=== PATIENT | male | born 1995 | race Caucasian/White ===

== ENCOUNTER 2025-09-08 15:39 | Outpatient (AMB) | payer OTHER, SELFPAY ==
--- NOTE | 2025-09-08 15:49 | MHC.PC.OV ---
Vital Signs 09/08/25 15:56 Height 5 ft 7 in Weight 142 lb 2 oz BMI 22.3 BP 153/100 H Blood Pressure Location Rt brachial Position Sitting Respiration 18 Pulse 110 H Pulse Source Monitor Temp 98.3 F Temp Source Oral Pulse Oximetry (%) 99 Oxygen Delivery Method Room Air Intake Visit Reasons: CEMENT BLOCK MAKER - Diabetic symptoms Intake Note: CEMENT BLOCK MAKER- Diabetic symptoms, hypoglycemia, uncontrolled highs, hands tingling, thirst, nausea Stripper And Taper Required: No Accompanied by: Self / Same As Patient Allergies No Known Allergies Allergy (Verified 09/08/25 15:52) Medication List - Last Reconciled 09/08/25 by Alden Orourke MD famotidine 20 mg PO DAILY Tobacco use date assessed: 09/08/25 Dental Screening Dental Screen Date: 09/08/25 Did you have a dental visit in the last 12 months?: Yes Did you have a dental problem in the last 6 months where you did not have access to dental care?: No Was dental information given to patient?: Patient has dentist HPI HPI Comments History of Present Illness Details History of Present Illness The patient is a 29 year old individual presenting with constant nausea and the sensation of fluctuating blood sugar levels. Nausea: The patient has experienced constant nausea since mid-June. Episodes of intense nausea are associated with cold sweats of the hands and feet, tachycardia, tingling in the hands and feet, and increased thirst. These episodes can occur suddenly, with one notable incident occurring immediately after eating. The patient has a prescription for Zofran from a prior urgent care visit and has also taken famotidine 20 mg, which provides minimal relief. Hypoglycemia: The patient has a history of hypoglycemia diagnosed around age 11 or 12. The patient is familiar with the symptoms of low blood sugar and keeps Nathan Bloks for management. There is a history of one hospitalization in college for a blood sugar level in the low 20s. The patient has never seen an cell support operator for this condition. The current symptoms of perceived blood sugar fluctuations and nausea do not feel like the patient's typical hypoglycemic episodes. Lipoma of skin and subcutaneous tissue of back: The patient was diagnosed with a lipoma underneath the shoulder blade by a cable installation manager last week. The lipoma can be painful at times. The cable installation manager recommended removal but did not provide a referral. Alcohol Consumption: The patient reports drinking alcohol socially a couple of times per week, estimating consumption at about 15 drinks per week. Elevated blood pressure reading, without diagnosis of hypertension: There is a family history of hypertension. The patient has not previously been told of having elevated blood pressure. 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 - Substance Use: The patient denies smoking or illicit drug use. - Alcohol Use: The patient reports drinking socially, consuming approximately 15 drinks per week. - Nutritional Intake: The patient reports intentionally eating better to lose weight. - Weight Management: The patient has had an intentional weight loss of 25 pounds over the last six months. - Exercise: The patient reports working out more as part of intentional weight loss efforts. Family History: - Diabetes: Runs on the maternal side of the family. - Hypertension: Present in the family. Past Medical History - Hypoglycemia: Diagnosed at age 12-13, with a history of one hospitalization in college for a blood sugar level in the low 20s. - Lipoma: Located under the shoulder blade, recently diagnosed. Health Maintenance - A comprehensive set of screening labs was ordered, including CBC, CMP, thyroid panel, hemoglobin A1c, lipid panel, vitamin B12, folate, vitamin D, urinalysis, and screening for hepatitis B, hepatitis C, and HIV. - A follow-up appointment is scheduled in two weeks to discuss all lab results and determine the next steps in management. [facility] Medical History (Updated 09/08/25 @ 16:58 by Alden Orourke MD) Elevated BP without diagnosis of hypertension Alcohol abuse Lipoma Nausea Hypoglycemia Surgical History (Updated 09/08/25 @ 15:54 by Alen Ellis CMA) H/O wisdom tooth extraction Family History (Updated 09/08/25 @ 15:56 by Alen Ellis CMA) Maternal Aunt Diabetes Maternal Grandfather Diabetes Hypertension Maternal Grandmother Diabetes Maternal Uncle Diabetes Mother Diabetes Father Hypertension Paternal Grandmother Breast cancer Social History (Updated 09/08/25 @ 15:56 by Alen Ellis CMA) Housing: Apartment Alcohol intake: current Patient Tobacco Use Status: Never used Tobacco Second Hand Smoke Exposure: No service: No Current occupational status: employed 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 1. Little interest or pleasure in doing things: not at all 2. Feeling down, depressed, or hopeless: not at all 3. Trouble falling or staying asleep, or sleeping too much: not at all 4. Feeling tired or having little energy: not at all 5. Poor appetite or overeating: several days 6. Feeling bad about yourself - or that you are a failure or have let yourself or your family down: not at all 7. Trouble concentrating on things, such as reading the newspaper or watching television: not at all 8. Moving or speaking so slowly that other people could have noticed. Or the opposite - being so fidgety or restless that you have been moving around a lot more than usual: not at all 9. Thoughts that you would be better off or of hurting yourself in some way: not at all Total score: 1 Depression Screening Interpretation: Negative Depression Screening Done: Yes 47648 - PHQ-9 Billing: Yes Source: Developed by Drs. Nicola Nugent, Philomena Welsh, Jaylen Tracey and colleagues, with an educational natasha from [employer]. Thrive Questionnaire Date Thrive assessed: 09/08/25 I am a: Patient What is your living situation today?: I have a steady place to live Within the past 12 months, did the food you bought not last and you didn't have the money to get more?: Never true Within the past 12 months, did you worry whether your food would run out before you got money to buy more?: Never true Do you have trouble paying for medicines?: No Do you have trouble getting transportation to medical appointments?: No Do you have trouble paying your heating and electricity bill?: No Do you have trouble taking care of your child, family member or friend?: No Do you have trouble with day-to-day activities such as bathing, preparing meals, shopping, managing finances, etc.?: No Are you currently unemployed and looking for a job?: No Are you interested in more education?: No Please select the resources that you would like help with: None Currently or been in a relationship where the following occur: No concerns reported THRIVE Score: 0 AUDIT C Alcohol Use Questionnaire (AUDIT-C) 1. How often do you have a drink containing alcohol?: 2-3 times a week 2. How many drinks containing alcohol do you have on a typical day when you are drinking?: 3 or 4 3. How often do you have six or more drinks on one occasion?: Less than monthly Total Score: 5 BOZENA-7 AMB Questionnaire BOZENA-7 Date BOZENA - 7 assessed: 09/08/25 Feeling nervous, anxious, or on edge: 1 = Several days Not being able to stop or control worryin = Not at all Worrying too much about different things: 0 = Not at all Trouble relaxin = Several days Being so restless that it is hard to sit still: 0 = Not at all Becoming easily annoyed or irritable: 0 = Not at all Feeling afraid as if something awful might happen: 0 = Not at all Total BOZENA-7 score (0-4 normal; 5-9 mild; 10-14 moderate; 15-21 severe): 2 Source: Developed by Drs. Nicola Nugent, Philomena Welsh, Jaylen Tarcey and colleagues, with an educational natasha from [employer]. BOZENA-7 Assessment Billing BOZENA-7 Assessment Tool: BOZENA-7 Assessment 98081 Review of Systems Narrative Review of Systems - Constitutional: Reports intentional weight loss of 25 pounds in the last 6 months. - GI: Reports constant nausea since mid-June. - Denies any issues with bowel movements. - Cardiovascular: Reports palpitations during episodes of nausea. - Neurological: Reports tingling in the hands and feet during episodes of nausea. - Endocrine: Reports a history of hypoglycemia and a current sensation of blood sugar fluctuations. - Reports excessive thirst during episodes of nausea. - Dermatologic: Reports cold sweats of the hands and feet during episodes of nausea. - Reports a lipoma under the shoulder blade. - : Denies any issues with urination. - Sleep: Denies anything out of the ordinary with sleep. 10-point ROS reviewed and negative except as noted in HPI Physical exam (Primary Care) Vital Signs: Last Vital Signs Temp 98.3 F 09/08/25 15:56 Pulse 110 H 09/08/25 15:56 Resp 18 09/08/25 15:56 BP 153/100 H 09/08/25 15:56 Pulse Ox 99 09/08/25 15:56 Oxygen Delivery Method Room Air 09/08/25 15:56 BMI result Body Mass Index 22.3 Tobacco/Smoking Status: Tobacco use Status Tobacco use date assessed 09/08/25 09/08/25 15:58 Patient Tobacco Use Status Never used Tobacco 09/08/25 15:58 PHQ-9: PHQ-9 Score PHQ-9: Total score 1 09/08/25 16:32 Depression Screening Interpretation: Negative Thrive Assessment: Date of Thrive Assessment Date Thrive assessed 09/08/25 09/08/25 15:58 Currently or been in a relationship where the following occur: No concerns reported Narrative Physical Exam General: Well-appearing, in no acute distress. Vital signs: Blood pressure noted at 153/100. HEENT: Normocephalic, atraumatic. PERRLA, EOMI. Conjunctiva clear, sclera anicteric. Oropharynx clear, mucous membranes moist. TMs intact bilaterally. Neck: Supple, no lymphadenopathy, no thyromegaly, no JVD or carotid bruits. Cardiovascular: RRR, normal S1/S2, no murmurs, rubs, or gallops. Peripheral pulses 2+ and symmetric. No edema. Respiratory: Lungs clear to auscultation bilaterally, no wheezes, rales, or rhonchi. Normal effort. Abdomen: Soft, non-tender, non-distended. Normoactive bowel sounds. No hepatosplenomegaly, no masses. Liver felt slightly enlarged. MSK: Full range of motion, no joint swelling or deformity. Normal gait. Skin: Warm, dry, intact. No rashes, lesions, or pallor. Noted lipoma under the shoulder blade. Neuro: Alert and oriented x3. Cranial nerves II-XII intact. Strength 5/5 throughout. Sensation intact. Reflexes 2+ symmetric. Normal coordination and gait. Psych: Appropriate mood and affect. Normal judgment and insight. Results AMB Hemoglobin A1c AMB Hemoglobin A1c 5.2 % Last Edit by Alen Ellis CMA on 09/08/25 16:33 Results Reviewed Results Reviewed: Laboratory Last Values Hgb A1c (Clinic) 5.2 % (4.0-6.0) 09/08/25 16:32 Coding Level of Care Code New Pt Level 4 (10509) Diagnoses Nausea R11.0 Lipoma D17.9 Alcohol abuse F10.10 Elevated BP without diagnosis of hypertension R03.0 Additional Codes BOZENA-7 Assessment Billing - BOZENA-7 Assessment Tool: BOZENA-7 Assessment 65276 ([id number]) PHQ-9 - 01704 - PHQ-9 Billing: Yes ([id number]) Assessment & Plan Assessment & Plan (1) Nausea: Code(s): R11.0 - Nausea Category: Medical (2) Lipoma: Code(s): D17.9 - Benign lipomatous neoplasm, unspecified Category: Medical (3) Alcohol abuse: Code(s): F10.10 - Alcohol abuse, uncomplicated Category: Social Hx (4) Elevated BP without diagnosis of hypertension: Code(s): R03.0 - Elevated blood-pressure reading, without diagnosis of hypertension Category: Medical Plan Consent The patient was informed of the plan to order comprehensive blood work to evaluate the presenting symptoms, and verbally agreed to proceed. Patient was informed and verbally consented to the use of an ambient scribe for clinic note documentation during this visit. Plan 1. Nausea - Recommended [id number] Vitamin B6 and nicolasa candy for symptomatic relief. - To investigate the underlying cause, a comprehensive lab panel including a CBC and CMP was ordered. 2. Hypoglycemia - Ordered a hemoglobin A1c to assess long-term glucose control. - A referral to endocrinology will be considered to investigate the cause of blood sugar fluctuations depending on the lab results. 3. Lipoma Of Skin And Subcutaneous Tissue Of Back - A referral to a general or plastic surgeon will be made for consideration of excision, as the lipoma is painful. - The patient was advised to contact their insurance for a list of covered plastic surgeons and then to schedule an appointment with the provided referral. 4. Elevated Blood Pressure Reading, Without Diagnosis Of Hypertension - The blood pressure reading of 153/100 mmHg was noted, with the consideration that it may be elevated due to anxiety from the first visit. - Plan to monitor blood pressure at subsequent visits. - If readings remain elevated, a home blood pressure log will be considered. 5. At-Risk Alcohol Use - The patient was counseled to reduce alcohol intake from the reported 15 drinks per week, citing potential health risks, particularly to the liver. - Liver function will be evaluated with the ordered CMP, especially given the finding of possible mild hepatomegaly on exam. Discussion Notes I had a detailed discussion with the patient, who is presenting for the first time with concerns of nausea and blood sugar irregularities. I explained that we would order a comprehensive set of labs to get an overall picture of the patient's health and investigate potential causes for the symptoms. For symptomatic relief of nausea, I recommended trying [id number]-treaurb vitamin B6 and nicolasa candy. Regarding the painful lipoma, I informed the patient that I would provide a referral to a surgeon for excision and advised the patient to first check with their insurance for covered providers. I also addressed the elevated blood pressure reading, explaining that it could be related to anxiety and that we would monitor it in the future rather than treating it at this time. We discussed the patient's alcohol consumption, and I advised reducing intake due to its health risks, noting we would check liver enzymes in the blood work. I recommended a follow-up visit in two weeks to review all the results and create a further plan, which may include a referral to an cell support operator. Patient Instructions - Please go to the lab to have your blood drawn for the tests we discussed. - For nausea, you can try taking bzwf-czf-dmelomw Vitamin B6 and using nicolasa candy as needed. - It is recommended that you cut down on your alcohol consumption. - For the painful lump under your shoulder blade, I will provide a referral. - Please call your insurance company to find a plastic surgeon that is covered, and then call that doctor's office to schedule an appointment. - Please make a follow-up appointment to see me in two weeks to go over your lab results and discuss next steps. Medical Decision Making The patient is a 29-year-old individual presenting with a new onset of constant nausea and a sensation of blood sugar fluctuations since mid-June. While the patient has a known history of hypoglycemia, the current presentation is atypical, prompting a broad differential diagnosis. To obtain a baseline and investigate metabolic, endocrine, hepatic, and other systemic causes for the symptoms, a comprehensive lab panel was ordered, including CBC, CMP, HbA1c, thyroid studies, and vitamin levels. The elevated blood pressure of 153/100 mmHg is noted but attributed to possible situational anxiety given this is a first visit; I will monitor this on follow-up before considering a diagnosis of hypertension. The patient's reported alcohol intake of approximately 15 drinks/week is concerning, and counseling to reduce intake was provided. This is especially relevant given the physical exam finding of possible mild hepatomegaly, and liver function tests will be crucial in assessing this. The symptomatic lipoma warrants surgical evaluation for excision, so a referral will be placed. The plan is to review lab results in two weeks to guide further management, including a potential referral to endocrinology if blood sugar abnormalities are confirmed or if an underlying cause is not identified. Total Time Statement 30 min Total time spent caring for the patient today includes pre-visit chart review, documentation, review of laboratory and diagnostic imaging results, medication reconciliation, medically necessary evaluation, counseling on diagnoses, care coordination, ordering appropriate tests and medications, review of tests performed by other providers, reporting test results to the patient, and communication with other healthcare providers. Orders: Orders TSH reflex Free T4 Today Z13.9 - Encounter for screening, unspecified HIV Ab/Ag Today Z13.9 - Encounter for screening, unspecified Lipid Panel Today Z13.9 - Encounter for screening, unspecified Complete Blood Count Auto Diff Today Z13.9 - Encounter for screening, unspecified Hepatitis B Surface Antigen Today Z13.9 - Encounter for screening, unspecified Syphilis Screen Today Z13.9 - Encounter for screening, unspecified Comprehensive Met. Panel Today Z13.9 - Encounter for screening, unspecified Hepatitis C Antibody Today Z13.9 - Encounter for screening, unspecified UA CC w/rflx Micro + Cult Today Z13.9 - Encounter for screening, unspecified Vitamin B12 and Folate Today Z13.9 - Encounter for screening, unspecified Hemoglobin A1c Today Z13.9 - Encounter for screening, unspecified Magnesium Today Z13.9 - Encounter for screening, unspecified Vitamin D 1,25 dihydroxy Today Z13.9 - Encounter for screening, unspecified Hepatitis B Surface Antibody Today Z13.9 - Encounter for screening, unspecified AMB Hemoglobin A1c Today Z13.9 - Encounter for screening, unspecified
[2025-09-08 15:56] VITALS: BP 153/100; PULSE 110; RESP 18; TEMP 36.8; O2SAT 99; BMI 22.3
--- OUTSIDE RECORDS SUMMARY | 2025-09-08 20:08 | XMS_ITS | Clinical Summary ---
Author Organization [facility] Address [address] [place] [id number] Phone Care Team Providers Care Emergency Operator Name Role Phone Unavailable Primary Care Provider Unavailabl e Immunizations Immunization Administration Dates Next Due DTP 06/12/1996, 5,04/06/1995, 995 DTaP 5 10/25/1999 HPV, Quadrivalent 02/26/2013,12/08/2011,09/29/20 11 Hep B, ped/adol 06/07/1995,02/03/1995,1994 Hib (PRP-T) 03/14/1996, 5,04/06/1995, 995 Influenza, injectable, trivalent 004,08/20/2003,08/27/2002, 001,08/15/2000,07/19/1999,08/31/1998, MMR 10/25/1999,03/14/1996 Meningococcal Conj (Menactra) MCV4P 02/26/2013,1 OPV 10/25/1999, 5,04/06/1995, 995 Tdap 07/11/2006 Varicella 09/03/2008,12/19/1995 Family History Relation Name Status Comments Father Alive Father: Asthma Mother Alive Mother: Alive a nd well Other Family history of *Dental caries, No family history of *Sudden /[place] under 55, Family history of *CVA/Stroke, Family history of *Heart Disease, Family history of Migraines Sister Alive Sister: Alive a nd well Social History Tobacco Use Types Packs/Day Years Used Date Smoking Tobacco: Never Comments:Never smoker Sex and Gender Information Value Date Recorded Sex Assigned at Not on file Legal Sex Male 4:55 PM EDT Gender Identity Not on file Sexual Orientation Not on file Last Filed Vital Signs Vital Sign Reading Time Taken Comments Blood Pressure 130/73 08/22/2014 12:00 AM EST Pulse - - Temperature 36.6 C (97.9 F) 08/22/2014 12:00 AM EST Respiratory Rate - - Oxygen Saturation - - Inhaled Oxygen Concentration - - Weight 51.5 kg (113 lb 9.6 oz) 08/22/2014 12:00 AM EST Height 166.6 cm (5' 5.6 ) 08/22/2014 12:00 AM ES T Body Mass Index 18.56 08/22/2014 12:00 AM EST Plan of Treatment Health Maintenance Due Date Last Done Comments DTaP,Tdap,and Td Vaccines (7 - Td or Tdap) 07/11/2016 07/11/2006, 10/25/1999, 06/12/1996, Additional history exists Influenza Vaccines (#1) 2025 08/27/20 04, 08/20/2003, 08/27/2002, Additional history exists COVID-19 Vaccine ( season) 2025 Hepatitis B Vaccines Completed 06/07/1995, 02/03/1995, 1994 HIB Vaccines Completed 03/14/1996, 05/17, 04/06/1995, Additional history exists IPV Vaccines Completed 10/25/1999, 05/17, 04/06/1995, Additional history exists MMR Vaccines Completed 10/25/1999, 03/14/1996 Varicella Vaccines Completed 09/03/2008, 12/19/1995 HPV Vaccines Completed 02/26/2013, 11/17, 09/29/2011 Meningococcal Vaccine Completed 02/26/2013, 007 Hepatitis A Vaccines Aged Out No long er eligible based on patient's age to complete this topic Men B Vaccine Aged Out No longer elig ible based on patient's age to complete this topic Pneumococcal Vaccine Aged Out No long er eligible based on patient's age to complete this topic
--- OUTSIDE RECORDS SUMMARY | 2025-09-08 20:08 | XMS_ITS | Encounter Summary ---
Author Organization [facility] Address [address] [place] [address] Phone Care Team Providers Care Adhesive Bonding Machine Operator Name Role Phone Ronan Anaya MD Primary Care Provider [phone] Encounter Details Date Type Department Care Team (Late st Contact Info) Description 06/01/2017 Conversion Encounter [facility] [place] [address] [place] [address] Social History Tobacco Use Types Packs/Day Years Used Date Smoking Tobacco: Never Comments:Never smoker Sex and Gender Information Value Date Recorded Sex Assigned at Not on file Legal Sex Male 4:55 PM EDT Gender Identity Not on file Sexual Orientation Not on file documented as of this encounter Plan of Treatment Not on file documented as of this encounter Visit Diagnoses Not on filedocumented in this encounter Care Teams Adhesive Bonding Machine Operator Relationship Specialty Start Date End Date Ronan Anaya MD [address] [place] [address] PCP - General 05/26/17 01/26/23 documented as of this encounter
== END 2025-09-08 16:23 | disposition home or self-care (01) ==
LOC: HO.HMCFMS 15:40
PROVIDERS: PCP Student in an Organized Health Care Education/Training Program; Visit Provider Student in an Organized Health Care Education/Training Program
DX: R11.0 Nausea (principal); D17.9 Benign lipomatous neoplasm, unspecified; F10.10 Alcohol abuse, uncomplicated; R03.0 Elevated blood-pressure reading, without diagnosis of hypertension

== ENCOUNTER → 2025-09-08 15:39 | Outpatient (BNVA) | payer OTHER, SELFPAY | PROVIDERS: Visit Provider Student in an Organized Health Care Education/Training Program | DX: R11.0 Nausea (principal); D17.1 Benign lipomatous neoplasm of skin and subcutaneous tissue of trunk; F10.10 Alcohol abuse, uncomplicated; R03.0 Elevated blood-pressure reading, without diagnosis of hypertension; Z13.31 Encounter for screening for depression; Z13.39 Encounter for screening examination for other mental health and behavioral disorders | CPT/HCPCS: 96127 ==

== ENCOUNTER 2025-09-09 08:37 | Outpatient (REF) | payer OTHER, SELFPAY ==
--- OUTSIDE RECORDS SUMMARY | 2025-09-09 08:58 | XMS_ITS | Clinical Summary ---
Author Organization [facility] Address [address] [place] [id number] Phone Care Team Providers Care Transporter Radiology Name Role Phone Unavailable Primary Care Provider [...] *Dental caries, No family history of *Sudden /[place] under 55, Family history of *CVA/Stroke, Family [...]
--- OUTSIDE RECORDS SUMMARY | 2025-09-09 08:58 | XMS_ITS | Encounter Summary ---
Author Organization [facility] Address [address] [place] [address] Phone Care Team Providers Care Music Orchestrator Name Role Phone Ronan Anaya MD Primary Care Provider [phone] Encounter Details Date Type Department Care Team (Late st Contact Info) Description 06/01/2017 Conversion Encounter [facility] [place] [address] [place] [address] Social History Tobacco Use Types Packs/Day Years [...] on filedocumented in this encounter Care Teams Music Orchestrator Relationship Specialty Start Date End Date Ronan Anaya MD [address] [facility] [place] [address] PCP - General 05/26/17 01/26/23 documented as of this encounter
[2025-09-09 13:08] LABS: Appearance Urine Clear; Glucose Urine UA Negative (Negative); PH 6.0 (5.0-9.0); Specific Gravity - Urine >= 1.030 (1.005-1.025)
[2025-09-09 13:47] LABS: MANUAL DIFF FLAG NO
[2025-09-09 14:15] LABS: Hematocrit 46.4 % (42.0-52.0); Hemoglobin 15.5 g/dl (14.0-18.0); Imm Gran Abs Auto 0.01 X10*3/uL (0.00-0.03); Imm Gran Pct Auto 0.1 % (0.0-0.4); Lymphocytes Absolute Auto 1.5 X10*3/uL (1.2-4.9); Mean Corpuscular HGB Conc 33.4 g/dl (31.0-36.0); Mean Corpuscular Hemoglobin 30.3 pg (27.0-33.0); Mean Corpuscular Volume 90.8 fL (80.0-98.0); NRBC Abs Auto 0.000 X10*3/uL (0.0-0.012); NRBC Pct Auto 0.0 /100WBC (0.0-0.2); Platelet Count 216 X10*3/uL (160-400); Red Blood Count 5.11 X10*6/uL (4.60-5.80); White Blood Count 8.0 X10*3/uL (4.8-10.8)
[2025-09-09 14:16] LABS: Alanine Aminotransferase 24 U/L (0-40); Albumin Level 5.2 g/dL (3.5-5.0); Alkaline Phosphatase 56 U/L (39-117); Anion Gap 12 (12-20); Aspartate Amino Transferase 22 U/L (5-37); Blood Urea Nitrogen 15 mg/dL (9-16); Calcium 10.0 mg/dL (8.4-10.2); Carbon Dioxide 29 mmol/L (22-29); Chloride 106 mmol/L (96-108); Cholesterol 179 mg/dL (<200); Estimated Glomerular Filt Rate > 60; HDL Cholesterol 52 mg/dL (>40); Magnesium 2.1 mg/dL (1.6-2.6); Potassium 4.1 mmol/L (3.3-5.1); Sodium 143 mmol/L (135-145); Total Protein 7.6 g/dL (6.5-8.0); Triglycerides 127 mg/dL (<150)
[2025-09-09 14:47] LABS: Folate 10.3 ng/mL (> or = 4.0); Vitamin B12 369 pg/mL (200-900)
[2025-09-10 05:10] LABS: Syphilis Screen Nonreactive (Nonreactive)
[2025-09-10 05:40] LABS: HBS Num1 0.00 mIU/mL (0-7.99); HBsAGNum1 0.41 S/CO (0.00-0.99); HIV Num 1 0.05 S/CO (0.00-0.99); Hepatitis B Surface Antigen Negative (Negative); ~HepC Num1 0.08 S/CO (0.00-0.79); ~Hepatitis B Surface Antibody NONREACTIVE (Nonreactive); ~Hepatitis C Antibody Nonreactive (Nonreactive)
[2025-09-13 13:58] LABS: VITAMIN D (1,25 OH) D3 36 pg/mL; Vit D (1,25-Dihydroxy) Total 36 pg/mL (18-72); Vitamin D (1,25 OH) D2 <8 pg/mL
== END 2025-09-09 08:38 | disposition home or self-care (01) ==
LOC: HO.HKASLDS 08:37
PROVIDERS: PCP Student in an Organized Health Care Education/Training Program; Visit Provider Student in an Organized Health Care Education/Training Program
DX: Z13.89 Encounter for screening for other disorder (principal); Z20.2 Contact with and (suspected) exposure to infections with a predominantly sexual mode of transmission; Z11.4 Encounter for screening for human immunodeficiency virus [HIV]; Z13.6 Encounter for screening for cardiovascular disorders; Z13.29 Encounter for screening for other suspected endocrine disorder; Z13.21 Encounter for screening for nutritional disorder; Z13.1 Encounter for screening for diabetes mellitus
CPT/HCPCS: 36415; 80053; 80061; 81003; 82607; 82652; 82746; 83036; 83735; 84443; 85025; 86706; 86780; 86803; 87340; 87389

== ENCOUNTER 2025-09-25 08:49 | Outpatient (AMB) | payer OTHER, SELFPAY ==
--- NOTE | 2025-09-25 08:52 | MHC.PC.OV ---
Vital Signs 09/25/25 08:53 Height 5 ft 7 in Weight 142 lb 4 oz BMI 22.3 BP 146/81 H Blood Pressure Location Rt brachial Position Sitting Pulse 81 Pulse Source Pulse Oximeter Temp 98.2 F Temp Source Oral Pulse Oximetry (%) 98 Oxygen Delivery Method Room Air Intake Visit Reasons: 2 week follow up Accompanied by: Self / Same As Patient Allergies No Known Allergies Allergy (Verified 09/25/25 08:56) Medication List - Last Reconciled 09/25/25 by Alden Orourke MD [BLOOD PRESSURE KIT As directed] famotidine 20 mg PO DAILY ondansetron HCl 4 mg PO Q8H Tobacco use date assessed: 09/08/25 Dental Screening Dental Screen Date: 09/08/25 HPI HPI Comments History of Present Illness Details History of Present Illness The patient is a 29 year old male presenting with visit for lab results review. Elevated blood pressure reading, without diagnosis of hypertension: The patient has a history of an elevated blood pressure reading of 153/100 at his last visit. Diagnostic Results: - Hematology: Normal - Chemistry panel: Normal sodium and potassium - Renal function: Good - A1c/Glucose: Great - Liver function: Good - Lipids: Good - Urinalysis: Normal - Syphilis: Negative - Hepatitis B: Negative - Hepatitis C: Negative - HIV: Negative Past Medical History - History of elevated blood pressure reading (153/100) at last visit. Health Maintenance [facility] Medical History (Updated 09/25/25 @ 08:58 by Alden Orourke MD) Hypertension Elevated BP without diagnosis of hypertension Alcohol abuse Lipoma Nausea Hypoglycemia Surgical History H/O wisdom tooth extraction Family History Maternal Aunt Diabetes Maternal Grandfather Diabetes Hypertension Maternal Grandmother Diabetes Maternal Uncle Diabetes Mother Diabetes Father Hypertension Paternal Grandmother Breast cancer Social History Housing: Apartment Alcohol intake: current Patient Tobacco Use Status: Never used Tobacco Second Hand Smoke Exposure: No service: No Current occupational status: employed 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 1. Little interest or pleasure in doing things: not at all 2. Feeling down, depressed, or hopeless: not at all 3. Trouble falling or staying asleep, or sleeping too much: not at all 4. Feeling tired or having little energy: not at all 5. Poor appetite or overeating: several days 6. Feeling bad about yourself - or that you are a failure or have let yourself or your family down: not at all 7. Trouble concentrating on things, such as reading the newspaper or watching television: not at all 8. Moving or speaking so slowly that other people could have noticed. Or the opposite - being so fidgety or restless that you have been moving around a lot more than usual: not at all 9. Thoughts that you would be better off or of hurting yourself in some way: not at all Total score: 1 Depression Screening Interpretation: Negative Depression Screening Done: Yes 13337 - PHQ-9 Billing: Yes Source: Developed by Drs. Nicola Nugent, Philomena Welsh, Jaylen Tracey and colleagues, with an educational natasha from [employer]. Thrive Questionnaire Date Thrive assessed: 09/25/25 I am a: Patient What is your living situation today?: I have a steady place to live Within the past 12 months, did the food you bought not last and you didn't have the money to get more?: Never true Within the past 12 months, did you worry whether your food would run out before you got money to buy more?: Never true Do you have trouble paying for medicines?: No Do you have trouble getting transportation to medical appointments?: No Do you have trouble paying your heating and electricity bill?: No Do you have trouble taking care of your child, family member or friend?: No Do you have trouble with day-to-day activities such as bathing, preparing meals, shopping, managing finances, etc.?: No Are you currently unemployed and looking for a job?: No Are you interested in more education?: No Please select the resources that you would like help with: None Currently or been in a relationship where the following occur: No concerns reported THRIVE Score: 0 AUDIT C Alcohol Use Questionnaire (AUDIT-C) 1. How often do you have a drink containing alcohol?: 2-3 times a week 2. How many drinks containing alcohol do you have on a typical day when you are drinking?: 3 or 4 3. How often do you have six or more drinks on one occasion?: Less than monthly Total Score: 5 BOZENA-7 AMB Questionnaire BOZENA-7 Date BOZENA - 7 assessed: 09/25/25 Feeling nervous, anxious, or on edge: 1 = Several days Not being able to stop or control worryin = Not at all Worrying too much about different things: 0 = Not at all Trouble relaxin = Several days Being so restless that it is hard to sit still: 0 = Not at all Becoming easily annoyed or irritable: 0 = Not at all Feeling afraid as if something awful might happen: 0 = Not at all Total BOZENA-7 score (0-4 normal; 5-9 mild; 10-14 moderate; 15-21 severe): 2 Source: Developed by Drs. Nicola Nugent, Philomena Welsh, Jaylen Tracey and colleagues, with an educational natasha from [employer]. BOZENA-7 Assessment Billing BOZENA-7 Assessment Tool: BOZENA-7 Assessment 63211 Review of Systems Narrative Review of Systems 10-point ROS reviewed and negative except as noted in HPI Physical exam (Primary Care) Vital Signs: Last Vital Signs Temp 98.2 F 09/25/25 08:53 Pulse 81 09/25/25 08:53 BP 146/81 H 09/25/25 08:53 Pulse Ox 98 09/25/25 08:53 Oxygen Delivery Method Room Air 09/25/25 08:53 BMI result Body Mass Index 22.3 Tobacco/Smoking Status: Tobacco use Status Tobacco use date assessed 09/08/25 09/25/25 08:56 Patient Tobacco Use Status Never used Tobacco 09/25/25 08:56 PHQ-9: PHQ-9 Score PHQ-9: Total score 1 09/25/25 08:56 Depression Screening Interpretation: Negative Thrive Assessment: Date of Thrive Assessment Date Thrive assessed 09/25/25 09/25/25 08:56 Currently or been in a relationship where the following occur: No concerns reported Narrative Physical Exam General: Well-appearing, in no acute distress. Vital signs: Elevated blood pressure at 146/81. HEENT: Normocephalic, atraumatic. PERRLA, EOMI. Conjunctiva clear, sclera anicteric. Oropharynx clear, mucous membranes moist. TMs intact bilaterally. Neck: Supple, no lymphadenopathy, no thyromegaly, no JVD or carotid bruits. Cardiovascular: RRR, normal S1/S2, no murmurs, rubs, or gallops. Peripheral pulses 2+ and symmetric. No edema. Respiratory: Lungs clear to auscultation bilaterally, no wheezes, rales, or rhonchi. Normal effort. Abdomen: Soft, non-tender, non-distended. Normoactive bowel sounds. No hepatosplenomegaly, no masses. MSK: Full range of motion, no joint swelling or deformity. Normal gait. Skin: Warm, dry, intact. No rashes, lesions, or pallor. Neuro: Alert and oriented x3. Cranial nerves II-XII intact. Strength 5/5 throughout. Sensation intact. Reflexes 2+ symmetric. Normal coordination and gait. Psych: Appropriate mood and affect. Normal judgment and insight. Office Procedures Flu Questionnaire Does the patient have a severe egg allergy?: No Does the patient have severe life threatening allergies?: No Does the patient have a fever or illness today?: No Has the patient ever had Guillain-[place] Syndrome?: No Has the patient ever had any past reaction to a flu shot?: No Immunizations Fluarix [id number] (PF) 45 mcg (15 mcg x 3)/0.5 mL IM syringe Performing Provider: Alden Orourke MD Performing Location: [facility] Documented (not given) by: Randi Matson CMA on 09/25/25 08:57 Reason Not Given: Patient Refused Coding Level of Care Code Est Pt Level 3 (88527) Add On Problem Visit Only Diagnoses Hypertension I10 Additional Codes BOZENA-7 Assessment Billing - BOZENA-7 Assessment Tool: BOZENA-7 Assessment 96320 ([id number]) PHQ-9 - 92559 - PHQ-9 Billing: Yes ([id number]) Assessment & Plan Assessment & Plan (1) Hypertension: Code(s): I10 - Essential (primary) hypertension Category: Medical Plan Consent Patient was informed and verbally consented to the use of an ambient scribe for clinic note documentation during this visit. Plan 1. Elevated Blood Pressure Reading, Without Diagnosis Of Hypertension - Continue to monitor blood pressure. - Will provide a blood pressure kit for home readings for 2 weeks. - Patient to follow-up in 2 weeks to review home readings and determine if antihypertensive medication is indicated. Discussion Notes I reviewed the lab results with the patient, which were all within normal limits, including hematology, chemistry, renal function, A1c, liver function, lipids, and urine studies. Screenings for syphilis, hepatitis B, hepatitis C, and HIV were negative. We discussed today's elevated blood pressure reading of 146/81, noting it is an improvement from the 153/100 at his last visit. I will provide him with a home blood pressure kit to monitor his readings for two weeks, after which he will return for follow-up to decide on the necessity of starting medication. Patient Instructions - Use the provided blood pressure kit to check your blood pressure at home for the next 2 weeks. - Return to the clinic in 2 weeks to review your home blood pressure readings. - At your next visit, we will decide if you need to start blood pressure medication. Medical Decision Making The patient's lab work is reassuring and shows no acute concerns. His blood pressure remains elevated at 146/81, though it is lower than his prior reading of 153/100. Given the persistent elevation, I have provided him with a home blood pressure cuff for a 2-week monitoring period to gather more data and differentiate from in-office elevations. The decision to initiate antihypertensive therapy will be made based on these home readings at his follow-up visit in two weeks. Total Time Statement 20 min Total time spent caring for the patient today includes pre-visit chart review, documentation, review of laboratory and diagnostic imaging results, medication reconciliation, medically necessary evaluation, counseling on diagnoses, care coordination, ordering appropriate tests and medications, review of tests performed by other providers, reporting test results to the patient, and communication with other healthcare providers. Orders: Orders Influenza [id number] Immunization Today Z23 - Encounter for immunization Medications: New [BLOOD PRESSURE KIT] As directed 1 ea 0RF I10 - Essential (primary) hypertension
[2025-09-25 08:53] VITALS: BP 146/81; PULSE 81; TEMP 36.8; O2SAT 98; BMI 22.3
== END 2025-09-25 09:04 | disposition home or self-care (01) ==
LOC: HO.HMCFMS 08:50
PROVIDERS: PCP Student in an Organized Health Care Education/Training Program; Visit Provider Student in an Organized Health Care Education/Training Program
DX: I10 Essential (primary) hypertension (principal); Z23 Encounter for immunization

== ENCOUNTER → 2025-09-25 08:49 | Outpatient (BNVA) | payer OTHER, SELFPAY | PROVIDERS: PCP Student in an Organized Health Care Education/Training Program; Visit Provider Student in an Organized Health Care Education/Training Program | DX: Z13.31 Encounter for screening for depression (principal); Z13.39 Encounter for screening examination for other mental health and behavioral disorders | CPT/HCPCS: 90471; 96127 ==

== ENCOUNTER 2025-10-14 14:32 | Outpatient (AMB) | payer OTHER, SELFPAY ==
--- NOTE | 2025-10-14 14:33 | MHC.PC.OV ---
Vital Signs 10/14/25 14:37 Height 5 ft 7 in Weight 144 lb 2 oz BMI 22.6 BP 156/84 H Blood Pressure Location Rt brachial Position Sitting Respiration 17 Pulse 86 Pulse Source Pulse Oximeter Temp 97.9 F Temp Source Oral Pulse Oximetry (%) 98 Oxygen Delivery Method Room Air Intake Visit Reasons: 2 wk - blood pressure review Intake Note: Patient present for blood pressure review. 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 White Coat Hypertension: The patient has been monitoring his blood pressure at home and reports multiple readings including 125, 130, 135, 140, 133, 142, 125, 128, 135, 142, 120, 115, and 120. His in-office blood pressure readings are consistently elevated, with the last reading being 146/81. The patient acknowledges getting nervous and anxious during clinic visits. Diagnostic Results: - Patient-reported home blood pressure readings: a series of systolic readings including 125, 130, 135, 140, 133, 142, 125, 128, 135, 142, 120, 115, and 120. - In-office blood pressure (current visit): 156/84 mmHg. - In-office blood pressure (previous visit): 146/81 mmHg. Past Medical History - History of elevated blood pressure readings in the office setting, with a previous reading of 146/81 mmHg. Health Maintenance - Home blood pressure monitoring. 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 Current occupational exposures/hazards: No Cognitive needs: No Hearing needs: No Vision needs: No Questionnaire Thrive Questionnaire Date Thrive assessed: 09/08/25 I am a: Patient What is your living situation today?: I have a steady place to live Within the past 12 months, did the food you bought not last and you didn't have the money to get more?: Never true Within the past 12 months, did you worry whether your food would run out before you got money to buy more?: Never true Do you have trouble paying for medicines?: No Do you have trouble getting transportation to medical appointments?: No Do you have trouble paying your heating and electricity bill?: No Do you have trouble taking care of your child, family member or friend?: No Do you have trouble with day-to-day activities such as bathing, preparing meals, shopping, managing finances, etc.?: No Are you currently unemployed and looking for a job?: No Are you interested in more education?: No Currently or been in a relationship where the following occur: No concerns reported THRIVE Score: 0 BOZENA-7 AMB Questionnaire BOZENA-7 Date BOZENA - 7 assessed: 09/25/25 Source: Developed by Drs. Nicola Nugent, Philomena Welsh, Jaylen Tracey and colleagues, with an educational natasha from [employer]. Review of Systems Narrative Review of Systems - Psychiatric: Reports nervousness and anxiety in the clinical setting. 10-point ROS reviewed and negative except as noted in HPI Physical exam (Primary Care) Vital Signs: Last Vital Signs Temp 97.9 F 10/14/25 14:37 Pulse 86 10/14/25 14:37 Resp 17 10/14/25 14:37 BP 156/84 H 10/14/25 14:37 Pulse Ox 98 10/14/25 14:37 Oxygen Delivery Method Room Air 10/14/25 14:37 BMI result Body Mass Index 22.6 Tobacco/Smoking Status: Tobacco use Status Tobacco use date assessed 09/08/25 10/14/25 14:36 Patient Tobacco Use Status Never used Tobacco 10/14/25 14:36 Thrive Assessment: Date of Thrive Assessment Date Thrive assessed 09/08/25 10/14/25 14:36 Currently or been in a relationship where the following occur: No concerns reported Narrative Physical Exam General: Well-appearing, in no acute distress. Vital signs: Blood pressure 156/84. Within normal limits otherwise. HEENT: Normocephalic, atraumatic. PERRLA, EOMI. Conjunctiva clear, sclera anicteric. Oropharynx clear, mucous membranes moist. TMs intact bilaterally. Neck: Supple, no lymphadenopathy, no thyromegaly, no JVD or carotid bruits. Cardiovascular: RRR, normal S1/S2, no murmurs, rubs, or gallops. Peripheral pulses 2+ and symmetric. No edema. Respiratory: Lungs clear to auscultation bilaterally, no wheezes, rales, or rhonchi. Normal effort. Abdomen: Soft, non-tender, non-distended. Normoactive bowel sounds. No hepatosplenomegaly, no masses. MSK: Full range of motion, no joint swelling or deformity. Normal gait. Skin: Warm, dry, intact. No rashes, lesions, or pallor. Neuro: Alert and oriented x3. Cranial nerves II-XII intact. Strength 5/5 throughout. Sensation intact. Reflexes 2+ symmetric. Normal coordination and gait. Psych: Appropriate mood and affect. Normal judgment and insight. Coding Level of Care Code Est Pt Level 3 (19263) Add On Problem Visit Only Diagnoses White coat syndrome without hypertension R03.0 Assessment & Plan Assessment & Plan (1) White coat syndrome without hypertension: Code(s): R03.0 - Elevated blood-pressure reading, without diagnosis of hypertension Category: Medical Plan Consent Patient was informed and verbally consented to the use of an ambient scribe for clinic note documentation during this visit. Plan 1. White Coat Hypertension - Withhold antihypertensive medication at this time due to good blood pressure control at home. - The patient was informed that starting medication could cause him to pass out due to hypotension. - Continue to monitor blood pressure at home. Discussion Notes I reviewed the patient's home blood pressure readings, which were within a normal range. I discussed with him that his in-office blood pressure of 156/84 is elevated, similar to his last visit, and is likely due to anxiety in the clinical setting, consistent with white coat hypertension. I explained that initiating medication based on these office readings would be inappropriate and could cause him to pass out. We will continue to monitor his blood pressure readings taken at home. Patient Instructions - You do not need blood pressure medication at this time because your home readings are good. - Taking medication could cause your blood pressure to become too low and make you pass out. - Continue checking your blood pressure at home as you have been doing. Medical Decision Making The patient presented for follow-up of elevated blood pressure readings in the office. A review of his home blood pressure log shows consistently normal readings, with values ranging from 115 to 142 systolic. In contrast, his current in-office reading is 156/84, and the previous one was 146/81, which is attributed to anxiety. This discrepancy between home and office readings is indicative of white coat hypertension. Given the normal home readings, initiating antihypertensive medication is not warranted and would carry a risk of iatrogenic hypotension and syncope. The plan is to continue home blood pressure monitoring and withhold pharmacological treatment. Total Time Statement 20 min Total time spent caring for the patient today includes pre-visit chart review, documentation, review of laboratory and diagnostic imaging results, medication reconciliation, medically necessary evaluation, counseling on diagnoses, care coordination, ordering appropriate tests and medications, review of tests performed by other providers, reporting test results to the patient, and communication with other healthcare providers.
[2025-10-14 14:37] VITALS: BP 156/84; PULSE 86; RESP 17; TEMP 36.6; O2SAT 98; BMI 22.6
--- OUTSIDE RECORDS SUMMARY | 2025-10-14 18:12 | XMS_ITS | Clinical Summary ---
Author Organization [facility] Address [address] [place] [id number] Phone Care Team Providers Care Pattern Setter Name Role Phone Unavailable Primary Care Provider [...] *Dental caries, No family history of *Sudden /[place] under 55, Family history of *CVA/Stroke, Family [...]
--- OUTSIDE RECORDS SUMMARY | 2025-10-14 18:12 | XMS_ITS | Encounter Summary ---
Author Organization [facility] Address [address] [place] [address] Phone Care Team Providers Care Shipping Support Name Role Phone Ronan Anaya MD Primary Care Provider [phone] Encounter Details Date Type Department Care Team (Late st Contact Info) Description 06/01/2017 Conversion Encounter [facility] [place] [address] [place] [address] Social History Tobacco Use Types Packs/Day Years [...] on filedocumented in this encounter Care Teams Shipping Support Relationship Specialty Start Date End Date Ronan Anaya MD [address] [facility] [place] [id number] PCP - General 05/26/17 01/26/23 documented as of this encounter
== END 2025-10-14 15:03 | disposition home or self-care (01) ==
LOC: HO.HMCFMS 14:33
PROVIDERS: PCP Student in an Organized Health Care Education/Training Program; Visit Provider Student in an Organized Health Care Education/Training Program
DX: R03.0 Elevated blood-pressure reading, without diagnosis of hypertension (principal)